=== PATIENT | male | born 1985 | race Hispanic/Latino ===

== ENCOUNTER 2020-01-10 13:02 | Emergency (ER) | payer SELFPAY ==
[~2020-01-10] VITALS: Ht 172.7 cm; Wt 72.6 kg
[2020-01-10] MEDS ORDERED: ONDANSETRON HCL INJ 2MG/ML 2ML 2 MG/ML VIAL IV STA (13:42)
[2020-01-10] MEDS ORDERED: KETOROLAC TROMETHAMINE 30 MG/ML VIAL IV STA (13:42)
[2020-01-10] MEDS ORDERED: SODIUM CHLORIDE 0.9% 1000ML 1,000 ML IV STA (13:42)
[2020-01-10] MEDS ORDERED: DIAZEPAM 5 MG TAB PO ONE (13:45)
[2020-01-10] MEDS ORDERED: HYDROCODONE/APAP 10MG-325MG TAB PO ONE (13:45)
[2020-01-10 13:56] LABS: BASOPHILS # (AUTO) 0.1 (0.0-0.1); BASOPHILS % 0.5 % (0.0-1.0); EOSINOPHILS # (AUTO) 0.1 (0.0-0.4); HEMATOCRIT 45.7 % (38.2-49.6); HEMOGLOBIN 15.6 g/dL (14.0-18.0); LYMPHOCYTES # (AUTO) 3.1 (1.0-3.2); LYMPHOCYTES % 25.3 % (18.0-39.1); MEAN CORPUSCULAR HEMOGLOBIN 30.6 pg (28-32); MEAN CORPUSCULAR HGB CONC 34.1 g/dL (31-35); MEAN CORPUSCULAR VOLUME 89.6 fL (81-99); MONOCYTES # (AUTO) 0.6 (0.2-0.8); MONOCYTES % 4.9 % (4.4-11.3); NEUTROPHILS # (AUTO) 8.4 (2.1-6.9); NEUTROPHILS % 67.8 % (38.7-80.0); PLATELET COUNT 303 x10e3/uL (140-360); RED CELL DISTRIBUTION WIDTH 12.8 % (11.7-14.4)
[2020-01-10 14:15] LABS: ALANINE AMINOTRANSFERASE 23 IU/L (0-55); ALBUMIN 4.3 g/dL (3.5-5.0); ALBUMIN/GLOBULIN RATIO 1.3 (0.8-2.0); ALKALINE PHOSPHATASE 61 IU/L (40-150); ANION GAP 13.7 mmol/L (8-16); BLOOD UREA NITROGEN 11 mg/dL (7-26); BUN/CREATININE RATIO 10 (6-25); CARBON DIOXIDE 24 mmol/L (22-29); CHLORIDE 107 mmol/L (98-107); CREATINE KINASE 136 IU/L (30-200); CREATININE, SERUM 1.07 mg/dL (0.72-1.25); EST GLOMERULAR FILTRATION RATE > 60 ML/MIN (60-); GLUCOSE 74 mg/dL (74-118); POTASSIUM 3.7 mmol/L (3.5-5.1); SODIUM 141 mmol/L (136-145)
--- NOTE | 2020-01-10 14:59 | Diagnostic Imaging Report ---
EXAMINATION: SP LUMBAR, COMPLETE MIN 4VW INDICATION: Lower back pain COMPARISON: None FINDINGS: AP, lateral and oblique radiographs of the lumbar spine demonstrate no acute fracture or dislocation. Vertebral body heights are well-maintained. Alignment is anatomic. No substantial degenerative change. The soft tissues appear unremarkable. IMPRESSION: Normal lumbar spine. Signed by: Daniel Umana MD on 01/10/2020 2:56 PM
--- NOTE | 2020-01-10 18:06 | Emergency Department Note ---
History of Present Illnes History of Present Illness Chief Complaint: Back Pain History of Present Illness This is a 34 year old male Patient in from home with reports of middle back pain that started this morning with a "spasm" and then became so severe he couldn't walk when he got to work. Patient states that the pain radiates down his spine to both of his legs down to his knees. Patient works in construction/remodeling homes but denies recent heavy lifting, falls or trauma. Patient reports that he is currently unable to walk at all due to his pain being a 02/14. Historian: Patient Arrival Mode: Car Vault Worker Required: No Onset (how long ago): hour(s) Location: LOWER BACK Quality: PAIN Radiation: Reports non-radiation Severity: severe Onset quality: sudden Timing of current episode: constant Progression: unchanged Chronicity: new Context: Denies recent illness Relieving factors: none Exacerbating factors: none Associated symptoms: Reports denies other symptoms Past Medical/Family History Physician Review I have reviewed the patient's past medical and family history. Any updates have been documented here. Past Medical History Recent Fever: No Clinical Suspicion of Infectio: No New/Unexplained Change in Ment: No Past Medical History: None Past Surgical History: None Social History Smoking Cessation: Current every day smoker Counseling Performed: No Alcohol Use: Occasional Any Illegal Drug Use: Yes (marijuana) TB Exposure/Symptoms: No Physically hurt or threatened: No Family History Family history of heart diseas: No Other Any Pre-Existing Lines (PICC,: No Review of Systems Review of Systems Constitutional: Reports no symptoms EENTM: Reports no symptoms Cardiovascular: Reports no symptoms Respiratory: Reports no symptoms Gastrointestinal: Reports no symptoms Genitourinary: Reports no symptoms Musculoskeletal: Reports as per HPI, Reports back pain Integumentary: Reports no symptoms Neurological: Reports no symptoms Psychological: Reports no symptoms Endocrine: Reports no symptoms Hematological/Lymphatic: Reports no symptoms Physical Exam Related Data Allergies: Coded Allergies: No Known Allergies (Unverified , 01/10/20) Triage Vital Signs Vital Signs Date Time Temp Pulse Resp B/P (MAP) Pulse Ox O2 Delivery O2 Flow Rate FiO2 01/10/20 13:30 98.1 69 15 129/81 98 Room Air Vital signs reviewed: Yes Physical Exam CONSTITUTIONAL Constitutional: Present well-developed, Present well-nourished HENT HENT: Present normocephalic, Present atraumatic, Present oropharynx clear/moist, Present nose normal HENT L/R: Present left ext ear normal, Present right ext ear normal EYES Eyes: Reports PERRL, Reports conjunctivae normal NECK Neck: Present ROM normal PULMONARY Pulmonary: Present effort normal, Present breath sounds normal CARDIOVASCULAR Cardiovascular: Present regular rhythm, Present heart sounds normal, Present capillary refill normal, Present normal rate GASTROINTESTINAL Abdominal: Present soft, Present nontender, Present bowel sounds normal; Absent left CVA tenderness, Absent right CVA tenderness GENITOURINARY Genitourinary: Present exam deferred SKIN Skin: Present warm, Present dry MUSCULOSKELETAL Musculoskeletal: Present ROM normal, Present other (NEG SLR. NORMAL STR/SENS/DTR'S) NEUROLOGICAL Neurological: Present alert, Present oriented x 3, Present no gross motor or sensory deficits PSYCHOLOGICAL Psychological: Present mood/affect normal, Present judgement normal Results Laboratory Result Diagram: 01/10/20 1342 01/10/20 1352 Laboratory Laboratory Tests Test 01/10/20 13:52 01/10/20 13:42 Sodium Level 141 mmol/L (136-145) Potassium Level 3.7 mmol/L (3.5-5.1) Chloride Level 107 mmol/L (98-107) Carbon Dioxide Level 24 mmol/L (22-29) Anion Gap 13.7 mmol/L (8-16) Blood Urea Nitrogen 11 mg/dL (7-26) Creatinine 1.07 mg/dL (0.72-1.25) Estimat Glomerular Filtration Rate > 60 ML/MIN (60-) BUN/Creatinine Ratio 10 (6-25) Glucose Level 74 mg/dL (74-118) Calcium Level 10.0 mg/dL (8.4-10.2) Total Bilirubin 0.4 mg/dL (0.2-1.2) Aspartate Amino Transf (AST/SGOT) 21 IU/L (5-34) Alanine Aminotransferase (ALT/SGPT) 23 IU/L (0-55) Alkaline Phosphatase 61 IU/L (40-150) Creatine Kinase 136 IU/L (30-200) Creatine Kinase MB 1.10 ng/mL (0-5.0) Troponin I 0.004 ng/mL (0-0.300) Total Protein 7.7 g/dL (6.5-8.1) Albumin 4.3 g/dL (3.5-5.0) Globulin 3.4 g/dL (2.3-3.5) Albumin/Globulin Ratio 1.3 (0.8-2.0) White Blood Count 12.35 x10e3/uL (4.8-10.8) Red Blood Count 5.10 x10e6/uL (4.3-5.7) Hemoglobin 15.6 g/dL (14.0-18.0) Hematocrit 45.7 % (38.2-49.6) Mean Corpuscular Volume 89.6 fL (81-99) Mean Corpuscular Hemoglobin 30.6 pg (28-32) Mean Corpuscular Hemoglobin Concent 34.1 g/dL (31-35) Red Cell Distribution Width 12.8 % (11.7-14.4) Platelet Count 303 x10e3/uL (140-360) Neutrophils (%) (Auto) 67.8 % (38.7-80.0) Lymphocytes (%) (Auto) 25.3 % (18.0-39.1) Monocytes (%) (Auto) 4.9 % (4.4-11.3) Eosinophils (%) (Auto) 1.0 % (0.0-6.0) Basophils (%) (Auto) 0.5 % (0.0-1.0) Neutrophils # (Auto) 8.4 (2.1-6.9) Lymphocytes # (Auto) 3.1 (1.0-3.2) Monocytes # (Auto) 0.6 (0.2-0.8) Eosinophils # (Auto) 0.1 (0.0-0.4) Basophils # (Auto) 0.1 (0.0-0.1) Absolute Immature Granulocyte (auto 0.06 x10e3/uL (0-0.1) Imaging Imaging results reviewed: Yes Assessment & Plan Medical Decision Making MDM LBP - CHECK XRAY L SPINE, CBC, CHEM, UA, CARDIACS - R/O FX, RHABDO, RENAL INSUFF, UTI/STONE Reassessment Reassessment DC HOME, TORADOL, ROBAXIN, MEDROL DOSE PACK, F/U PCP TOMORROW Assessment & Plan Final Impression: (1) Low back pain (2) Muscle spasm Depart Disposition: HOME, SELF-CARE Last Vital Signs Date Time Temp Pulse Resp B/P (MAP) Pulse Ox O2 Delivery O2 Flow Rate FiO2 01/10/20 13:30 98.1 69 15 129/81 98 Room Air Medications in the ED Ondansetron HCl 4 mg ONCE STAT IV Last administered on 01/10/20at 15:08; Admin Dose 4 MG; Start 01/10/20 at 13:42; Stop 01/10/20 at 13:52; Status DC Ketorolac Tromethamine 30 mg ONCE STAT IV Last administered on 01/10/20at 15:09; Admin Dose 30 MG; Start 01/10/20 at 13:42; Stop 01/10/20 at 13:52; Status DC Sodium Chloride 1,000 ml @ 0 mls/hr Q0M STAT IV ; Start 01/10/20 at 13:42; Stop 01/10/20 at 13:45; Status DC Acetaminophen/ Hydrocodone Bitart 1 ea ONCE ONCE PO Last administered on 01/10/20at 15:09; Admin Dose 1 EA; Start 01/10/20 at 13:45; Stop 01/10/20 at 13:52; Status DC Diazepam 5 mg ONCE ONCE PO Last administered on 01/10/20at 15:09; Admin Dose 5 MG; Start 01/10/20 at 13:45; Stop 01/10/20 at 13:50; Status DC DANA PEREZ MD Jan 10, 2020 18:06
[2020-01-10 18:15] VITALS: BP 132/75
== END 2020-01-10 18:19 | disposition home or self-care (01) ==
LOC: ER 14:43
DX: M54.5 Low back pain (principal); M62.830 Muscle spasm of back; F17.210 Nicotine dependence, cigarettes, uncomplicated
CPT/HCPCS: 36415; 72110; 80053; 82550; 82553; 84484; 85025; 99283; J1885; J2405